=== PATIENT | female | born 1990 | race African-American/Black ===

== ENCOUNTER 2018-10-04 10:46 | Inpatient (IN) ==
[2018-10-04] MEDS ORDERED: MEPERIDINE 50 MG/1 ML VIAL IV PRN (11:02)
[2018-10-04] MEDS ORDERED: ONDANSETRON 4 MG/2 ML VIAL IV PRN (11:02)
[2018-10-04] MEDS ORDERED: BUTORPHANOL 2 MG/ML VIAL IV PRN (11:02)
[2018-10-04 11:26] LABS: Basophils % 0.1 % (0.0-0.8); Eosinophils % 0.5 % (0.00-10.9); Hematocrit 33.8 VOL% (35.7-47.0); Hemoglobin 10.6 GM/DL (12.0-16.0); Immature Granulocytes % 1.2 %; Immature Granulocytes Absolute 0.09 #; Lymphocytes # 1.6 10*3/uL (1.4-4.0); Mean Corpuscular HGB Conc 31.4 GM/DL (32-36); Mean Corpuscular Volume 86.4 FL (87-102); Mean Platelet Volume 11.1 FL (9.6-12.0); Monocytes % 7.8 % (1.7-12.7); Neutrophils % 69.4 % (38.7-73.9); Platelet Count 207 T/CUMM (130-400); Red Blood Count 3.91 MC/CUMM (3.8-5.5); Red Cell Distribution Width 16.2 % (9.3-17.3); White Blood Count 7.5 T/CUMM (4-12)
[2018-10-04] MEDS ORDERED: OXYTOCIN/LR 20 UNIT/1,000 ML BAG IV SCH (11:30)
[2018-10-04 11:37] LABS: INR 0.8; PT Patient Result 9.1 SECS; Partial Thromboplastin Time 25.7 SECS (0-40)
[2018-10-04 11:49] LABS: Alanine Aminotransferase 14 U/L (13-56); Albumin 2.5 G/DL (3.4-5.0); Alkaline Phosphatase 94 U/L (45-117); Aspartate Amino Transferase 11 U/L (0-37); Bilirubin,Total < 0.39 MG/DL (0.2-1.0); Blood Urea Nitrogen 7 MG/DL (7-18); Calcium 8.7 MG/DL (8.5-10.1); Glucose 81 MG/DL (74-106); Osmolality,Calculated 273.5 MOS/KG (273-304); Total Protein 6.7 G/DL (6.4-8.3)
[2018-10-04] MEDS: LACTATED RINGERS 1,000 ML IV SCH (15:49)
[2018-10-05] MEDS ORDERED: NALOXONE 0.4 MG/ML VIAL IV PRN (00:52)
[2018-10-05] MEDS ORDERED: ePHEDrine 50 MG/ML AMP IV PRN (00:52)
[2018-10-05] MEDS ORDERED: PROMETHAZINE 25 MG/1 ML VIAL IM ONE (00:52)
[2018-10-05] MEDS ORDERED: CITRIC ACID/SODIUM CITRATE 30 ML UDCUP PO ONE (00:52)
[2018-10-05] MEDS ORDERED: LACTATED RINGERS 1,000 ML IV ONE (00:52)
[2018-10-05] MEDS ORDERED: diphenhydrAMINE 50 MG/1 ML VIAL IV PRN (00:52)
[2018-10-05] MEDS ORDERED: FAMOTIDINE 20 MG/2 ML VIAL IV ONE (00:52)
[2018-10-05] MEDS ORDERED: fentaNYL 2 MCG/ROPIV 0.2% EPID 100 ML EPIDURAL SCH (01:00)
[2018-10-05] MEDS ORDERED: LACTATED RINGERS 1,000 ML IV SCH (01:00)
[2018-10-05] MEDS: LACTATED RINGERS 1,000 ML IV SCH (02:42)
[2018-10-05] MEDS ORDERED: AMPICILLIN INJ 2,000 MG in SODIUM CHLORIDE 0.9% 100 ML IV ONE (03:36)
[2018-10-05] MEDS ORDERED: AMPICILLIN INJ 1,000 MG in SODIUM CHLORIDE 0.9% 100 ML IV SCH (08:15)
[2018-10-05] MEDS ORDERED: miSOPROStol 200 MCG TABLET ONE (08:18)
[2018-10-05] MEDS ORDERED: METHYLERGONOVINE 0.2 MG/1 ML AMP ONE (08:19)
[2018-10-05] MEDS ORDERED: CARBOPROST TROMETHAMINE 250 MCG/ML AMP IM ONE (08:19)
[2018-10-05] MEDS ORDERED: OXYTOCIN/LR 20 UNIT/1,000 ML BAG IV ONE ×2 (08:19→09:25)
[2018-10-05] MEDS ORDERED: oxyCODONE/ACETAMINOPHEN 5-325 MG TABLET PO PRN ×2 (09:25)
[2018-10-05] MEDS ORDERED: RHO(D) IMMUNE GLOBULIN 300 MCG SYRINGE IM ONE (09:25)
[2018-10-05] MEDS ORDERED: WITCH HAZEL PADS 100/JAR TOP PRN (09:25)
[2018-10-05] MEDS ORDERED: DIPH/TET/ACEL PERT BOOSTER VACCINE 0.5 ML VIAL IM ONE (09:25)
[2018-10-05] MEDS ORDERED: LANOLIN 50% CREAM 0.3 OZ TUBE TOP PRN (09:25)
[2018-10-05] MEDS ORDERED: MEASLES/MUMPS/RUBELLA VACCINE 0.5 ML VIAL SUBCUT ONE (09:25)
[2018-10-05] MEDS ORDERED: ONDANSETRON 4 MG/2 ML VIAL IV PRN (09:25)
[2018-10-05] MEDS ORDERED: ACETAMINOPHEN 325 MG TABLET PO PRN (09:25)
[2018-10-05] MEDS ORDERED: BISACODYL 10 MG SUPP RECTAL PRN (09:25)
[2018-10-05] MEDS ORDERED: BENZOCAINE 20%/MENTHOL 0.5% SPRAY 56 GM CAN TOP PRN (09:25)
[2018-10-05] MEDS ORDERED: HYDROCORTISONE 2.5% RECTAL CREAM 30 GM TUBE TOP PRN (09:25)
[2018-10-05] MEDS: IBUPROFEN 800 MG TABLET PO PRN (19:34)
[2018-10-05] MEDS: DOCUSATE SODIUM 100 MG CAPSULE PO SCH (20:48)
[2018-10-06 03:44] LABS: Basophils % 0.2 % (0.0-0.8); Eosinophils # 0.1 10*3/uL (0.0-0.87); Eosinophils % 1.1 % (0.00-10.9); Hematocrit 30.1 VOL% (35.7-47.0); Hemoglobin 9.4 GM/DL (12.0-16.0); Immature Granulocytes % 0.8 %; Immature Granulocytes Absolute 0.09 #; Lymphocytes # 2.7 10*3/uL (1.4-4.0); Lymphocytes % 23.8 % (21.3-54.2); Mean Corpuscular HGB Conc 31.2 GM/DL (32-36); Mean Corpuscular Volume 87.2 FL (87-102); Mean Platelet Volume 11.8 FL (9.6-12.0); Monocytes % 8.7 % (1.7-12.7); Neutrophils % 65.4 % (38.7-73.9); Platelet Count 180 T/CUMM (130-400); Red Blood Count 3.45 MC/CUMM (3.8-5.5); Red Cell Distribution Width 16.3 % (9.3-17.3); White Blood Count 11.3 T/CUMM (4-12)
[2018-10-06] MEDS: DOCUSATE SODIUM 100 MG CAPSULE PO SCH ×2 (09:32→21:02)
[2018-10-06] MEDS: IBUPROFEN 800 MG TABLET PO PRN (19:39)
[2018-10-07 07:35] VITALS: BP 141/73
[2018-10-07] MEDS: DOCUSATE SODIUM 100 MG CAPSULE PO SCH (09:46)
== END 2018-10-07 12:40 | disposition home or self-care (01) | DRG 807 ==
LOC: N.LDOUT 10:46 → N.LD 10:50 → N.OB 10-05 15:37
PROVIDERS: ADMIT Obstetrics & Gynecology; ATTEND Obstetrics & Gynecology